=== PATIENT | male | born 1945 | race Caucasian/White ===

== ENCOUNTER 2017-03-05 03:35 | Emergency (ER) | payer MEDICARE, OTHER ==
[2017-03-05 03:53] VITALS: BP 107/81
[2017-03-05] MEDS ORDERED: DIPH/PERTUSS(ACELL)/TETANUS VAC/PF 0.5 ML SYR (>=10YO) IM ONE (04:10)
[2017-03-05] MEDS ORDERED: CYCLOBENZAPRINE HCL 10 MG TABLET PO ONE (04:10)
--- NOTE | 2017-03-05 04:10 | ER Document Report ---
ED Fall - General Chief Complaint: Fall Injury Stated Complaint: FALL,LOWER BACK PAIN Time Seen by Provider: 03/05/17 04:05 Mode of Arrival: Ambulatory Information source: Patient TRAVEL OUTSIDE OF THE [place] IN LAST 30 DAYS: No - HPI Patient complains to provider of: Fall, low back pain Occurred: This evening Where: Outdoors Context: Slipped Associated symptoms: None Location of injury/pain: Back Quality of pain: Achy Severity: Moderate Pain Level: 4 Notes: Patient is a 71-year-old male who presents to the emergency room complaining of pain and injury to his low back that occurred this evening, around 7 PM he was walking [place] dock when he slipped and fell nearly falling off a dock but scraping his low back on the way, he took oxycodone shortly after and then again at 9 PM but continues to have pain in the low back, he has been able to ambulate, denies any bowel or bladder dysfunction, no numbness or tingling to his lower extremities, denies a head injury or loss of consciousness - Related data Allergies/Adverse Reactions: acetaminophen [From Tylenol] Allergy (Severe, Verified 03/05/17 03:58) "liver enzymes spike up" bupropion HCl [From Wellbutrin] Adverse Reaction (Intermediate, Verified 03:58) Abnormal behavior pravastatin Adverse Reaction (Verified 03/05/17 03:58) Past Medical History - General Information source: Patient - Social History Smoking Status: Never Smoker Family History: Reviewed & Not Pertinent Patient has suicidal ideation: No Patient has homicidal ideation: No - Past Medical History Cardiac Medical History: Reports: Hx Hypercholesterolemia, Hx Hypertension Denies: Hx Coronary Artery Disease, Hx Heart Attack Pulmonary Medical History: Denies: Hx Asthma, Hx Bronchitis, Hx COPD, Hx Pneumonia Neurological Medical History: Denies: Hx Cerebrovascular Accident, Hx Seizures Endocrine Medical History: Reports: Hx Diabetes Mellitus Type 2 Renal/ Medical History: Denies: Hx Peritoneal Dialysis Musculoskeltal Medical History: Reports Hx Arthritis Psychiatric Medical History: Reports: Hx Anxiety, Hx Depression - anxiety Past Surgical History: Denies: Hx Pacemaker - Immunizations Hx Diphtheria, Pertussis, Tetanus Vaccination: Yes Hx Pneumococcal Vaccination: 07/13/07 Review of Systems - Review of Systems Constitutional: No symptoms reported EENT: No symptoms reported Cardiovascular: No symptoms reported Respiratory: No symptoms reported Gastrointestinal: No symptoms reported Genitourinary: No symptoms reported Male Genitourinary: No symptoms reported Musculoskeletal: See HPI Skin: No symptoms reported Hematologic/Lymphatic: No symptoms reported Neurological/Psychological: No symptoms reported -: Yes All other systems reviewed and negative Physical Exam - Vital signs Vitals: Temp Pulse Resp BP Pulse Ox 97.7 F 76 20 107/81 91 L 03/05/17 03:44 03/05/17 03:44 03/05/17 03:44 03/05/17 03:44 03/05/17 03:44 - Notes Notes: - General General appearance: Appears well, Alert In distress: None - HEENT Head: Normocephalic, Atraumatic Eyes: Normal Conjunctiva: Normal Extraocular movements intact: Yes Eyelashes: Normal Pupils: PERRL - Respiratory Respiratory status: No respiratory distress - Cardiovascular Rhythm: Regular - Abdominal Inspection: Normal - Back Back: In the left lower thoracic and upper lumbar area there is a large abrasion with mild surrounding erythema, tenderness to palpate in the left thoracic and lumbar paraspinal musculature, pain with straight leg raise on the left - Extremities General upper extremity: Normal inspection General lower extremity: Normal inspection - Neurological Neuro grossly intact: Yes Orientation: AAOx4 [place] Coma Scale Eye Opening: Spontaneous [place] Coma Scale Verbal: Oriented [place] Coma Scale Motor: Obeys Commands [place] Coma Scale Total: 15 - Psychological Associated symptoms: Normal affect, Normal mood - Skin Skin Temperature: Warm Skin Moisture: Dry Skin Color: Normal Course - Re-evaluation Re-evalutation: 03/05/17 05:22 Patient symptoms are consistent with thoracic and lumbar strain, mainly on the left side from a fall he sustained earlier in the evening, he has mild abrasions to the area, was treated with a muscle relaxer and tetanus shots, he does have oxycodone that he takes at home for chronic pain, he was advised to ice the area, rest, refrain from heavy lifting or strenuous exercise, follow-up with his primary care provider or return if symptoms worsen, patient acknowledges understanding and agreement with this plan - Vital Signs Vital signs: Temp Pulse Resp BP Pulse Ox 97.7 F 76 20 107/81 91 L 03/05/17 03:44 03/05/17 03:44 03/05/17 03:44 03/05/17 03:44 03/05/17 03:44 Discharge - Discharge Clinical Impression: Lumbar strain Qualifiers: Encounter type: initial encounter Qualified Code(s): S39.012A - Strain of muscle, fascia and tendon of lower back, initial encounter Condition: Stable Disposition: HOME, SELF-CARE Instructions: Ice Packs ([facility]), Low Back Pain ([facility]), Muscle Strain ([facility]) Additional Instructions: Follow up with your primary care provider in one to 2 days. Return to the emergency room immediately if symptoms worsen or any additional concerns. Prescriptions: Cyclobenzaprine HCl [Flexeril 10 Mg Tablet] 10 mg PO TID #14 tablet Referrals: ERASMO SCHULZ DO [Primary Care Provider] - Follow up as needed
== END 2017-03-05 05:34 | disposition home or self-care (01) ==
LOC: ER 03:35
DX: S39.012A Strain of muscle, fascia and tendon of lower back, initial encounter (principal); M54.5 Low back pain; W19.XXXA Unspecified fall, initial encounter
CPT/HCPCS: 99283; 90471; 90715; A9270

== ENCOUNTER 2017-03-06 09:45 | Emergency (ER) | payer MEDICARE, OTHER ==
[2017-03-06] MEDS ORDERED: TRAMADOL HCL 50 MG TABLET PO ONE (10:28)
--- NOTE | 2017-03-06 10:45 | ER Document Report ---
ED General - General Chief Complaint: Back Pain Stated Complaint: BACK PAIN Time Seen by Provider: 03/06/17 10:15 Notes: Patient is a 71 year old male who returns to the ED complaining of left flank pain. States he fell on Thursday around 7PM. He was standing on a chair that fell out from underneath him and he landed on his left flank. He was seen here early on 03/05/2017, diagnosed with paraspinous muscle strain, sent home with flexeril and told to follow up with primary care. He has been taking the flexeril without improvement and taking his home oxycodone without relief. States his pain has only been getting worse since he started taking his oxycodone. He does have a history of kidney stones and feels that this pain is similar. Described as fleeting sharp stabbing pains in his left flank radiating down, no radiaiton into the back of his leg or groin. He states he was told he had multiple in his left kidney and has passed at least two. States last BM was yesterday but feels like he has to go. Denies n/v/d/c, hematuria, urinary incontinence, frequency, urgency, hesitency, pyuria, stool incontinence or saddle anesthesia, no numbness or tingling to his lower extremities, denies a head injury or loss of consciousness. He has been able to ambulate. His urologist is Dr. Noble. Primary care is Dr. Márquez with [facility]. TRAVEL OUTSIDE OF THE [place] IN LAST 30 DAYS: No - Related Data Allergies/Adverse Reactions: acetaminophen [From Tylenol] Adverse Reaction (Severe, Verified 03/06/17 10:28) "liver enzymes spike up" bupropion HCl [From Wellbutrin] Adverse Reaction (Intermediate, Verified 10:28) Abnormal behavior pravastatin Adverse Reaction (Verified 03/06/17 10:28) Past Medical History - Social History Smoking Status: Unknown if Ever Smoked Family History: Reviewed & Not Pertinent Patient has suicidal ideation: No Patient has homicidal ideation: No - Past Medical History Cardiac Medical History: Reports: Hx Hypercholesterolemia, Hx Hypertension Denies: Hx Coronary Artery Disease, Hx Heart Attack Pulmonary Medical History: Denies: Hx Asthma, Hx Bronchitis, Hx COPD, Hx Pneumonia Neurological Medical History: Denies: Hx Cerebrovascular Accident, Hx Seizures Endocrine Medical History: Reports: Hx Diabetes Mellitus Type 2 Renal/ Medical History: Denies: Hx Peritoneal Dialysis Musculoskeltal Medical History: Reports Hx Arthritis Psychiatric Medical History: Reports: Hx Anxiety, Hx Depression - anxiety Past Surgical History: Denies: Hx Pacemaker - Immunizations Hx Diphtheria, Pertussis, Tetanus Vaccination: Yes Hx Pneumococcal Vaccination: 07/13/07 Review of Systems - Review of Systems Constitutional: No symptoms reported Musculoskeletal: See HPI -: Yes All other systems reviewed and negative Physical Exam - Vital signs Vitals: Temp Pulse Resp BP Pulse Ox 98.0 F 66 16 98/60 L 94 03/06/17 09:46 03/06/17 09:46 03/06/17 09:46 03/06/17 09:46 03/06/17 09:46 - Notes Notes: PHYSICAL EXAM GENERAL: Alert, interacts well. NECK: Full range of motion. Supple. Trachea midline. LUNGS: Clear to auscultation bilaterally, no wheezes, rales, or rhonchi. No respiratory distress. HEART: Regular rate and rhythm. No murmurs, gallops, or rubs. ABDOMEN: Firm LLQ soft otherwise, mildly distended, nontender. No guarding, rebound, or rigidity. Bowel sounds present in all 4 quadrants. EXTREMITIES: Moves all 4 extremities spontaneously. No edema, radial and dorsalis pedis pulses 2/4 bilaterally. No cyanosis. BACK: Superficial abrasion over left flank without tenderness, no paraspinous muscle tenderness, Gait stable NEUROLOGICAL: Alert and oriented x4. Normal speech. SKIN: Warm, dry, normal turgor. No rashes or lesions noted. Course - Re-evaluation Re-evalutation: 03/06/17 11:17 Patient is a 71-year-old male who is hemodynamically stable, no acute distress and afebrile. Evidence of ileus noted on KUB without any evidence of kidney stones. Low index of suspicion for any concern for small bowel obstruction, bowel obstruction given patient tolerating p.o. and having bowel movements. Patient given strict return precautions and otherwise to follow-up on Thursday with his primary care provider. Patient put on clear liquid diet for bowel rest. After performing a Medical Screening Examination, I estimate there is LOW risk for ACUTE APPENDICITIS, BOWEL OBSTRUCTION, ACUTE CHOLECYSTITIS, PERFORATED DIVERTICULITIS, INCARCERATED HERNIA, PANCREATITIS, thus I consider the discharge disposition reasonable. Also, there is no evidence or peritonitis, sepsis, or toxicity. I have reevaluated this patient multiple times and no significant life threatening changes are noted. The patient and I have discussed the diagnosis and risks, and we agree with discharging home with close follow-up with the understanding that symptoms and presentations can change. We also discussed returning to the Emergency Department immediately if new or worsening symptoms occur. We have discussed the symptoms which are most concerning (e.g., bloody stool, fever, changing or worsening pain, vomiting) that necessitate immediate return. - Vital Signs Vital signs: Temp Pulse Resp BP Pulse Ox 98.0 F 66 16 98/60 L 94 03/06/17 09:46 03/06/17 09:46 03/06/17 09:46 03/06/17 09:46 03/06/17 09:46 Discharge - Discharge Clinical Impression: Ileus Condition: Good Disposition: HOME, SELF-CARE Additional Instructions: Bowel Obstruction There are many causes of abdominal pain. Your pain is coming from an obstruction of the intestines. Sometimes bowel obstruction gets better if the intestines are rested. But it can also be a serious problem requiring surgery. At this time, it appears that your obstruction may clear spontaneously. The physician does not feel that hospitalization is necessary, at present. Conditions may change, however, in the next few hours. We usually schedule a recheck in 12 to 24 hours. Stay on a diet of clear liquids. We usually prescribe medication for pain and for vomiting. If you're worsening despite this treatment, you may need to be admitted to the hospital. Call the doctor or come back for re-examination if any problems occur, such as: Pain that becomes more severe, steady, or becomes concentrated in one specific area. Also, pain that is more severe with movement or coughing. Vomiting that persists or becomes more frequent. Blood in the vomit, urine, or bowel movements. Blood in the stool may have a tarry or black appearance. Shaking chills or fever greater than 100 degrees F. The abdomen becomes more distended or swollen. Failure to improve as expected. ANTINAUSEA MEDICATION: You have been given a medication to suppress nausea and vomiting. This type of medication can be given as a shot, pill, or suppository. It will usually last for many hours. Pills and shots usually last six to eight hours, suppositories last about 12 hours. For the typical illness, only one or two doses of the medication may be necessary. Mild lightheadedness may occur. This type of medicine can cause drowsiness. Do not drive or operate dangerous machinery while under its influence. Do not mix with alcohol. See your doctor at once if you have muscle spasms or tightness, or uncontrollable motions (particularly of the neck, mouth, or jaw). Persistent vomiting or severe lightheadedness should also be evaluated by the physician. ANTISPASMODICS: You have been given a prescription for an antispasmodic medicine. This type of drug is used to decrease cramping and pain in the intestines. It is also used to decrease secretion of internal fluids (such as stomach acid in ulcer disease or pancreatic juice in pancreas disease). This medicine may cause drowsiness, especially with the first dose. Do not operate machinery or drive until all side effects have resolved. Do not combine with alcohol. Other common side effects include dry mouth and eyes. In older persons, antispasmodics can occasionally cause urinary retention, constipation, or trouble focusing the eyes. Glaucoma may be worsened by this medicine. FOLLOW-UP CARE: If you have been referred to a physician for follow-up care, call the physician s office for an appointment as you were instructed or within the next two days. If you experience worsening or a significant change in your symptoms, notify the physician immediately or return to the Emergency Department at any time for re-evaluation. Prescriptions: Dicyclomine HCl [Bentyl 20 mg Tablet] 20 mg PO QID #40 tablet Ondansetron HCl [Zofran 4 mg Tablet] 1 - 2 tab PO Q4H PRN #10 tablet PRN Reason: Tramadol HCl 50 mg PO TID #15 tablet
--- NOTE | 2017-03-06 10:59 | RADIOLOGY REPORT (SQ) ---
EXAM DESCRIPTION: KUB/ABDOMEN (SINGLE VIEW) COMPLETED DATE/TIME: 03/06/2017 10:50 am REASON FOR STUDY: left flank pain, h/o kdiney stones COMPARISON: None. NUMBER OF VIEWS: One view. TECHNIQUE: Supine radiographic image of the abdomen acquired. LIMITATIONS: None. FINDINGS: BOWEL GAS PATTERN: Abundant gas and fecal material within nondilated colon. Gas-filled lo ops of nondilated distal small bowel. CALCIFICATIONS: No suspicious calcifications. SOFT TISSUES: No gross mass or suggestion of organomegaly. HARDWARE: None. BONES: No bone lesions or fracture. OTHER: No other significant finding. IMPRESSION: Ileus.
[2017-03-06] MEDS ORDERED: DICYCLOMINE HCL INJ 20 MG/2 ML AMPULE IM ONE (11:11)
[2017-03-06 11:59] VITALS: BP 101/65
== END 2017-03-06 11:59 | disposition home or self-care (01) ==
LOC: ER 09:45
DX: K56.7 Ileus, unspecified (principal); I10 Essential (primary) hypertension; E11.9 Type 2 diabetes mellitus without complications; Z87.442 Personal history of urinary calculi
CPT/HCPCS: 99283; 96372; 74000; J0500; A9270